=== PATIENT | female | born 1935 | race Caucasian/White ===

== ENCOUNTER 2016-08-07 11:39 | Inpatient (IN) | payer MEDICARE, OTHER ==
[~2016-08-07] VITALS: Ht 154.9 cm; Wt 89.9 kg
[2016-08-07 14:20] LABS: HEMOGLOBIN 15.4 gm/dl (12.3-15.3); RED BLOOD COUNT 5.82 M/UL (4.00-5.10); WHITE BLOOD COUNT 6.3 K/UL (4.5-11.0)
[2016-08-07 15:28] LABS: BUN/CREATININE RATIO 20 (0-10)
[2016-08-08] MEDS ORDERED: GLUCOPHAGE 500500 MG PO (01:43)
[2016-08-08] MEDS ORDERED: ASPIRIN325 MG PO (01:44)
[2016-08-08] MEDS ORDERED: PROZAC20 MG PO (01:44)
[2016-08-08] MEDS ORDERED: ZANTAC150 MG PO (01:44)
[2016-08-08] MEDS ORDERED: KLONOPIN1 MG PO (01:45)
[2016-08-08] MEDS ORDERED: ZESTRIL40 MG PO (01:45)
[2016-08-09] MEDS ORDERED: LEVAQUIN750 MG PO (11:11)
[2016-08-10 05:55] LABS: WHITE BLOOD COUNT 5.8 K/UL (4.5-11.0)
[2016-08-10 05:57] LABS: HEMOGLOBIN 13.2 gm/dl (12.3-15.3); RED BLOOD COUNT 5.03 M/UL (4.00-5.10)
[2016-08-11 04:24] LABS: HEMOGLOBIN 13.5 gm/dl (12.3-15.3); RED BLOOD COUNT 5.17 M/UL (4.00-5.10); WHITE BLOOD COUNT 5.6 K/UL (4.5-11.0)
[2016-08-11 04:46] LABS: BUN/CREATININE RATIO 31 (0-10)
[2016-08-13 06:25] LABS: BUN/CREATININE RATIO 20 (0-10)
== END 2016-08-14 15:23 | DRG 896 ==
LOC: ER1 11:39 → ZEROF 20:15 → MED SURG 4 20:15 → ZEROF 08-14 13:49 → MED SURG 4 08-14 15:23
PROVIDERS: Emergency Medicine; Internal Medicine; ADMIT Emergency Medicine
DX: F13.232 Sedative, hypnotic or anxiolytic dependence with withdrawal with perceptual disturbance (principal); G92 Toxic encephalopathy; N39.0 Urinary tract infection, site not specified; R44.1 Visual hallucinations; R53.1 Weakness; R26.81 Unsteadiness on feet; R30.0 Dysuria; F41.9 Anxiety disorder, unspecified; F32.9 Major depressive disorder, single episode, unspecified; E11.9 Type 2 diabetes mellitus without complications; I10 Essential (primary) hypertension; G47.00 Insomnia, unspecified; E78.5 Hyperlipidemia, unspecified; Z86.73 Personal history of transient ischemic attack (TIA), and cerebral infarction without residual deficits; Z79.899 Other long term (current) drug therapy; Z87.440 Personal history of urinary (tract) infections; Z79.82 Long term (current) use of aspirin; Z79.84 Long term (current) use of oral hypoglycemic drugs
CPT/HCPCS: 36415; 70450; 71010; 80048; 80053; 82550; 82553; 82607; 82962; 83036; 83690; 83874; 83880; 84484; 85025; 85027; 85610; 85730; 87086; 93005; 96374; 97110; 97116; 97535; 99285; G0378; J0360; J1650; J2060

== ENCOUNTER 2021-09-10 15:00 | Emergency (ER) | payer MEDICARE, OTHER, MEDICAID ==
[~2021-09-10 15:00] MED LIST: ASPIRIN 325MG325 MG PO; BACTRIM DS TAB1 EACH PO; CYMBALTA60 MG PO; GLUCOPHAGE 500500 MG PO; KLONOPIN TAB 00.5 MG PO; LEVAQUIN750 MG PO; LEVOFLOXACIN500 MG PO; LIORESAL TAB 1010 MG PO; LIPITOR40 MG PO; LOPRESSOR 25 MG25 MG PO; METOPROLOL TART25 MG PO; PROZAC20 MG PO; TRAZODONE HCL150 MG PO; VENTOLIN HFA 66.7 GM INH; ZANTAC150 MG PO; ZESTRIL40 MG PO
[2021-09-10 16:47] LABS: HEMOGLOBIN 13.8 gm/dl (12.3-15.3); RED BLOOD COUNT 5.25 M/UL (4.00-5.10); WHITE BLOOD COUNT 8.3 K/UL (4.5-11.0)
[2021-09-10 17:13] LABS: BUN/CREATININE RATIO 28 (0-10)
[2021-09-10] MEDS ORDERED: OMNICEF 300 MG300 MG PO (19:13)
== END 2021-09-10 19:30 | disposition home or self-care (01) ==
LOC: ER1 15:00
PROVIDERS: Physician Assistant Medical
DX: N39.0 Urinary tract infection, site not specified (principal); I10 Essential (primary) hypertension; E11.9 Type 2 diabetes mellitus without complications
CPT/HCPCS: 80053; 81001; 85025; 96374; 99283; J0696